=== PATIENT | female | born 1960 ===

== ENCOUNTER → 2016-08-14 | Day surgery (SDC) | payer BC ==
[~2016-08-14] VITALS: Ht 160 cm; Wt 93.9 kg
[2016-08-14] VITALS (9 sets, daily range): BP systolic 112–135; BP diastolic 58–75
[~2016-08-14] MED LIST: Bupivacaine w/Epi 0.25% 30ml Vial INJ ONE; DiphenhydrAMINE 50mg/ml Inj IVP PRN; EPINEPHrine 1mg/1ml Amp ONE; HYDROmorphone 1mg/ml Carpuject SUBQ PRN; Hydromorphone 0.5mg/0.5ml inj IVP PRN; IBUPROFEN600 MG ORAL; Ketorolac 30mg Inj ONE; LEXAPRO10 MG ORAL; LR 1000ml 1,000 ML IVLG SCH; LR 1000ml ONE; Meperidine 25mg/ml Inj IV PRN; Metoclopramide 10mg/2ml Inj IVP PRN; Midazolam 2mg/2ml Inj IVP PRN; Midazolam 2mg/2ml Inj ONE; NS Irrig 4000ml IRRIG ONE; Norco 5mg/325mg tab ORAL PRN; Propofol 10mg/ml 20ml IV ONE; Tylenol #3 tab (300mg/30mg) ORAL PRN; fentaNYL 100 mcg/2 mL IV ONE
--- NOTE | 2016-08-14 07:05 | Pre-Procedure Note/Attestation ---
Pre-Procedure Note/Attestation Complete Prior to Procedure Planned Procedure: left Procedure Narrative: Left knee arthroscopy with partial menisectomy Indications for Procedure Pre-Operative Diagnosis: Left knee meniscal tear Attestation I attest that I discussed the nature of the procedure; its benefits; risks and complications; and alternatives (and the risks and benefits of such alternatives ), prior to the procedure, with the patient (or the patient's legal uniforms sales representative). I attest that, if there was a reasonable possibility of needing a blood transfusion, the patient (or the patient's legal uniforms sales representative) was given the [facility] standardized written summary, pursuant to the Wojciech Yeimy Blood Safety Act ([place] Health and Safety Code # 1645, as amended). I attest that I re-evaluated the patient just prior to the surgery and that there has been no change in the patient's H&P, except as documented below: KADEN BLACK Aug 14, 2016 07:05
--- NOTE | 2016-08-14 07:07 | Brief Operative Note ---
Immediate Post Operative Note Operative Note Pre-op Diagnosis: Left knee meniscal tear Procedure: Left knee arthroscopy with partial menisectomy Post-op Diagnosis: same as pre-op Findings: consistent w/pre-op dx studies Surgeon: Portillo Anesthesia: general Specimen: none Complications: none Condition: stable Estimated Blood Loss: none Drains: none Implant(s) used?: No KADEN BLACK Aug 14, 2016 07:07
--- NOTE | 2016-08-14 07:54 | Anethesia Preoperative Eval ---
Anesthesia Pre-op PMH/ROS General Date of Evaluation: Aug 14, 2016 Time of Evaluation: 07:12 Anesthesiologist: Deny ASA Score: ASA 2 Mallampati Score Class I : Soft palate, uvula, fauces, pillars visible Class II: Soft palate, uvula, fauces visible Class III: Soft palate, base of uvula visible Class IV: Only hard plate visible Mallampati Classification: Class II Surgeon: Portillo Diagnosis: L knee pain Surgical Procedure: L alyse arthroscopy Anesthesia History: none Family History: no anesthesia problems Allergies: Coded Allergies: No Known Allergies (Unverified , 08/13/16) Medications: see eMAR Past Medical History Cardiovascular: Denies: CAD, HTN, PR, arrhythmia, other, valve dz Pulmonary: Denies: COPD, RENETTA, asthma, other Gastrointestinal/Genitourinary: Reports: GERD, Denies: CRI, ESRD, other Neurologic/Psychiatric: Reports: depression/anxiety Endocrine: Denies: DM, hypothyroidism, other, steroids HEENT: Denies: TA[place] (L), [place]OSS (R), cataract (L), cataract (R), glaucoma, other Hematology/Immune: Denies: DVT, anemia, bleeding disorder, other Musculoskeletal/Integumentary: Reports: DJD, Denies: DDD, OA, RA, edema, other Other: obesity PMH Narrative: as above PSxH Narrative: hemorrhoidectomy Anesthesia Pre-op Phys. Exam Physician Exam Last Vital Signs Date Time Temp Pulse Resp B/P Pulse Ox O2 Delivery O2 Flow Rate FiO2 08/14/16 06:23 98.1 72 20 112/71 96 Room Air Constitutional: NAD Neurologic: CN 2-12 intact Cardiovascular: RRR, no M/R/G Respiratory: CTA Gastrointestinal: other - obesity Airway Exam Mallampati Score: Class II MO: limited Neck: flexible ROM: full Teeth: missing Dentures: no lower, no upper Anesthesia Pre-op A/P Studies Pre-op Studies: EKG - NSR Risk Assessment & Plan Assessment: ASA 2 Plan: GA with LMA Status Change Before Surgery: No Pre-Antibiotics Drug: Ancef 2gr. Given Within 1 Hr of Incision: Yes Time Given: 07:40 MENDOZA DAVID M.D. Aug 14, 2016 07:54
--- NOTE | 2016-08-14 08:32 | Immediate Post-Op Evaluation ---
Immediate Post-Op Evalulation Immediate Post-Op Evalulation Procedure: L knee arthroscopy meniscectomy Date of Evaluation: Aug 14, 2016 Time of Evaluation: 08:30 IV Fluids: 800 Blood Products: none Estimated Blood Loss: min Urinary Output: none Blood Pressure Systolic: 118 Blood Pressure Diastolic: 65 Pulse Rate: 86 Respiratory Rate: 20 O2 Sat by Pulse Oximetry: 99 Temperature (Fahrenheit): 98.1 Pain Score (1-10): 2 Nausea: No Vomiting: No Complications none Patient Status: reacts, none Hydration Status: adequate MENDOZA DAVID M.D. Aug 14, 2016 08:32
--- NOTE | 2016-08-14 10:00 | 48 Hour Post Anesthesia Eval ---
Post Anesthesia Evaluation Procedure: L knee arthroscopy meniscectomy Date of Evaluation: Aug 14, 2016 Time of Evaluation: 09:58 Blood Pressure Systolic: 124 0: 58 Pulse Rate: 74 Respiratory Rate: 20 Temperature (Fahrenheit): 97.6 O2 Sat by Pulse Oximetry: 98 Airway: patent Nausea: No Vomiting: No Pain Intensity: 2 Hydration Status: adequate Cardiopulmonary Status: stable Mental Status/LOC: patient returned to baseline Follow-up Care/Observations: n/a Post-Anesthesia Complications: none Follow-up care needed: ready to discharge MENDOZA DAVID M.D. Aug 14, 2016 10:00
--- NOTE | 2016-08-14 18:08 | Operative Note - Dictated ---
DATE OF OPERATION: 08/14/2016 SURGEON: Kamran Nath M.D. BAG SHAKER: None. ANESTHESIA: General plus local. COMPLICATIONS: None. ANTIBIOTICS: Ancef. PREOPERATIVE DIAGNOSIS: 1. Left knee 1.1. Medial femoral condyle chondrosis. 1.2. Medial meniscus tear. POSTOPERATIVE DIAGNOSIS: 1. Left knee 1.1. Medial femoral condyle chondrosis. 1.2. Medial meniscus tear. PROCEDURE PERFORMED: 1. Left knee arthroscopy with 1.1. Medial femoral condyle debridement. 1.2. Partial medial meniscectomy. INDICATIONS FOR PROCEDURE: The patient has had longstanding left knee pain refractory to all nonoperative management. An MRI confirmed the diagnosis. All risks, benefits, and alternatives to surgical intervention were discussed in great detail. Risks included, but were not limited to, bleeding, infection, neurovascular injury, need for additional surgical intervention, failure of pain relief, arthrofibrosis, complications of anesthesia, blood clots, stroke, heart attack, and potentially . She understood these risks, amongst others, and consent was signed. PROCEDURE IN DETAIL: The patient was brought into the operating room and placed supine on the operating table. The left knee was correctly verified for surgical site and prepped and draped in standard sterile fashion. Examination under anesthesia revealed symmetric range of motion of the contralateral side with 2+ Alpa and 1+ pivot shift. There is no effusion. Anterolateral and anteromedial portals were marked and injected with 20 mL of 0.25% Marcaine with epinephrine. A diagnostic arthroscopy was undertaken. It revealed the followin. Normal suprapatellar pouch. 2. Normal patellofemoral articulation. 3. Normal medial gutter. 4. Normal lateral gutter. 5. Normal lateral compartment. 6. Normal lateral meniscus. 7. Chronically partially torn anterior cruciate ligament. 8. Normal PCL. 9. Delaminating injury of medial aspect of medial femoral condyle (posterior to weightbearing surface). 10. Large complex macerated tear at the junction of the middle and posterior horns of the medial meniscus. Using a 4.5 mm shaver, left biter, and right biter, the medial meniscus tear was resected to a stable border just with a probe thereafter. The shaver was also used to perform a chondroplasty on the loose edges of the delaminating injury of the medial femoral condyle. The edges were then tested with a probe and found to be stable after debridement. All fluid and debris were evacuated from the knee. A 10 mL of 0.25% Marcaine with epinephrine were injected. The wounds were copiously irrigated and reapproximated using 4-0 Monocryl in a subcuticular fashion. Steri-Strips were used over Mastisol. A dry sterile dressing was applied. A compressive wrap was applied. She tolerated the procedure well. There were no complications. I attest that I performed the entire operation and she was transferred to recovery in good condition. Kamran Nath M.D. [place] [place]: ANNAMARIA JOB#: [id number] CC:
== END | disposition home or self-care (01) ==
LOC: SUR 05:50
DX: M23.222 Derangement of posterior horn of medial meniscus due to old tear or injury, left knee (principal); M94.8X6 Other specified disorders of cartilage, lower leg; E66.01 Morbid (severe) obesity due to excess calories; Z68.36 Body mass index [BMI] 36.0-36.9, adult; M17.12 Unilateral primary osteoarthritis, left knee; M47.9 Spondylosis, unspecified; M79.7 Fibromyalgia; M51.35 Other intervertebral disc degeneration, thoracolumbar region; M48.00 Spinal stenosis, site unspecified; K21.9 Gastro-esophageal reflux disease without esophagitis; F32.9 Major depressive disorder, single episode, unspecified; F41.9 Anxiety disorder, unspecified; I34.0 Nonrheumatic mitral (valve) insufficiency; B00.1 Herpesviral vesicular dermatitis; E78.1 Pure hyperglyceridemia
CPT/HCPCS: 29881; J0171; J0690; J1885; J2250; J2405; J2704; J3010; J7120; 94003; 94150